=== PATIENT | female | born 1960 | race Caucasian/White ===

== ENCOUNTER → 2019-12-10 14:00 | Outpatient (BNVA) | payer MEDICARE, MEDICAID, SELFPAY | PROVIDERS: Family Provider Family Medicine; PCP Family Medicine; Visit Provider Nurse Practitioner Psychiatric/Mental Health | DX: F10.21 Alcohol dependence, in remission (principal); F31.62 Bipolar disorder, current episode mixed, moderate; F43.12 Post-traumatic stress disorder, chronic; F60.3 Borderline personality disorder; Z63.4 Disappearance and death of family member | CPT/HCPCS: 99213 ==

== ENCOUNTER → 2020-02-25 07:41 | Outpatient (BNVA) | payer MEDICARE, MEDICAID, SELFPAY | PROVIDERS: Family Provider Family Medicine; PCP Family Medicine; Visit Provider Nurse Practitioner Psychiatric/Mental Health | DX: F31.62 Bipolar disorder, current episode mixed, moderate (principal); F60.3 Borderline personality disorder; F43.12 Post-traumatic stress disorder, chronic; Z63.4 Disappearance and death of family member; F10.21 Alcohol dependence, in remission; F41.1 Generalized anxiety disorder | CPT/HCPCS: 99213 ==

== ENCOUNTER → 2020-05-19 07:41 | Outpatient (BNVA) | payer MEDICARE, MEDICAID, SELFPAY | PROVIDERS: Family Provider Family Medicine; PCP Family Medicine; Visit Provider Nurse Practitioner Psychiatric/Mental Health | DX: F31.62 Bipolar disorder, current episode mixed, moderate (principal); F60.3 Borderline personality disorder; F43.12 Post-traumatic stress disorder, chronic; Z63.4 Disappearance and death of family member; F10.21 Alcohol dependence, in remission | CPT/HCPCS: 99213 ==

== ENCOUNTER → 2020-06-18 07:34 | Outpatient (BNVA) | payer MEDICARE, MEDICAID, SELFPAY | PROVIDERS: Family Provider Family Medicine; PCP Family Medicine; Visit Provider Nurse Practitioner Psychiatric/Mental Health | DX: F31.62 Bipolar disorder, current episode mixed, moderate (principal); F60.3 Borderline personality disorder; F43.12 Post-traumatic stress disorder, chronic; Z63.4 Disappearance and death of family member; F10.21 Alcohol dependence, in remission; F41.1 Generalized anxiety disorder | CPT/HCPCS: 99214 ==

== ENCOUNTER → 2020-06-28 11:36 | Outpatient (BNVA) | payer MEDICARE, MEDICAID, SELFPAY | PROVIDERS: Family Provider Family Medicine; PCP Family Medicine; Visit Provider Nurse Practitioner Psychiatric/Mental Health | DX: Z13.6 Encounter for screening for cardiovascular disorders (principal); E03.9 Hypothyroidism, unspecified; Z79.899 Other long term (current) drug therapy | CPT/HCPCS: 80061; 80164; 83036 ==

== ENCOUNTER → 2020-07-01 09:10 | Outpatient (BNVA) | payer MEDICARE, MEDICAID, SELFPAY | PROVIDERS: Family Provider Family Medicine; PCP Family Medicine; Visit Provider Family Medicine | DX: Z13.6 Encounter for screening for cardiovascular disorders (principal); E03.9 Hypothyroidism, unspecified | CPT/HCPCS: 80053; 84443; 85025 ==

== ENCOUNTER → 2020-09-03 07:45 | Outpatient (BNVA) | payer MEDICARE, MEDICAID, SELFPAY | PROVIDERS: Family Provider Family Medicine; PCP Family Medicine; Visit Provider Nurse Practitioner Psychiatric/Mental Health | DX: F31.62 Bipolar disorder, current episode mixed, moderate (principal); F60.3 Borderline personality disorder; F43.12 Post-traumatic stress disorder, chronic; Z63.4 Disappearance and death of family member; F10.21 Alcohol dependence, in remission | CPT/HCPCS: 99214 ==

== ENCOUNTER → 2020-09-29 11:49 | Outpatient (BNVA) | payer MEDICARE, MEDICAID, SELFPAY | PROVIDERS: Family Provider Family Medicine; Visit Provider Nurse Practitioner Family | DX: Z11.59 Encounter for screening for other viral diseases (principal); Z20.828 Contact with and (suspected) exposure to other viral communicable diseases; J06.9 Acute upper respiratory infection, unspecified | CPT/HCPCS: 87635 ==

== ENCOUNTER → 2020-10-04 07:32 | Outpatient (BNVA) | payer MEDICARE, MEDICAID, SELFPAY | PROVIDERS: Family Provider Family Medicine; Visit Provider Nurse Practitioner Psychiatric/Mental Health | DX: F31.62 Bipolar disorder, current episode mixed, moderate (principal); F43.12 Post-traumatic stress disorder, chronic; F60.3 Borderline personality disorder; Z63.4 Disappearance and death of family member; F10.21 Alcohol dependence, in remission | CPT/HCPCS: 99214 ==

== ENCOUNTER → 2020-12-08 07:40 | Outpatient (BNVA) | payer MEDICARE, SELFPAY | PROVIDERS: Family Provider Family Medicine; Visit Provider Nurse Practitioner Psychiatric/Mental Health | DX: F31.62 Bipolar disorder, current episode mixed, moderate (principal); F60.3 Borderline personality disorder; F43.12 Post-traumatic stress disorder, chronic; Z63.4 Disappearance and death of family member; F10.21 Alcohol dependence, in remission | CPT/HCPCS: 99214 ==

== ENCOUNTER 2021-01-27 09:53 | Outpatient (CLI) | payer OTHER, MEDICAID, SELFPAY ==
--- NOTE | 2021-01-27 09:57 | MM_ITS ---
WS: [id number] SCREENING DIGITAL MAMMOGRAM WITH CAD HISTORY: SCREENING COMPARISON: 07/05/2016 and 06/30/2015 Bilateral CC and MLO views submitted. Computer aided detection analyzed. Breast composition: There are scattered areas of fibroglandular density. Cluster of increasing calcif ications in the central RIGHT breast near 12:00. No distortion or soft tissue. MM/[place] [id number] IMPRESSION: BI-RADS: 0-Incomplete: Need additional imaging evaluation FOLLOW UP: Need Additional Imaging RIGHT BREAST: Magnification views of suspicious calcification CC and MLO. True ML.
== END 2021-01-27 09:54 | disposition home or self-care (01) ==
LOC: RADSHAW 09:56
PROVIDERS: PCP Family Medicine; Visit Provider Family Medicine
DX: Z12.31 Encounter for screening mammogram for malignant neoplasm of breast (principal); R92.1 Mammographic calcification found on diagnostic imaging of breast
CPT/HCPCS: 77067

== ENCOUNTER 2021-02-04 13:53 | Outpatient (CLI) | payer OTHER, MEDICAID, SELFPAY ==
--- NOTE | 2021-02-04 14:00 | MM_ITS ---
WS: [id number] RIGHT DIGITAL MAMMOGRAPHY WITH CAD CLINICAL INFORMATION: MAGNIFICATION VIEWS OF SUSPICIOUS CALCIFICATION CC MLO COMPARISON: January 27, 2021, June 2016, June 2015. TECHNIQUE: 3 views of the right breast were obtained. FINDINGS: Scattered fibroglandular densities of the right breast. A few faint punctate heterogeneous calcificat ions in the central right breast. A few of these in a ductal distributiono. These are indeterminate a nd recommend stereotactic biopsy for further evaluation. MM/[place] [id number] IMPRESSION: BI-RADS: 4-Suspicious Finding-Biopsy Should Be Considered FOLLOW UP: Stereotactic Biopsy Recommended
== END 2021-02-04 13:54 | disposition home or self-care (01) ==
PROVIDERS: PCP Family Medicine; Visit Provider Family Medicine
DX: R92.8 Other abnormal and inconclusive findings on diagnostic imaging of breast (principal); R92.1 Mammographic calcification found on diagnostic imaging of breast
CPT/HCPCS: 77065

== ENCOUNTER 2021-02-15 12:05 | Outpatient (CLI) | payer OTHER, MEDICAID, SELFPAY ==
--- NOTE | 2021-02-15 12:09 | MM_ITS ---
WS: [id number] STEREOTACTIC RIGHT BREAST BIOPSY WITH VACUUM ASSISTANCE HISTORY: abnormal mammogram COMPARISON: 02/04/2021 Procedure, risks and complications were explained to the patient. Medications and prior radiographs a re reviewed. RIGHT breast calcifications are located. Calcifications are targeted in the craniocaudal projection. The skin is cleansed with ChloraPrep and anesthetized with 1% buffered lidocaine. Deeper soft tissues anesthetized with a combination of lidocaine and epinephrine. Small dermatome is made. Needle advanc ed into the RIGHT breast. Stereotactic imaging reveals appropriate positioning adjacent calcification s. Multiple vacuum-assisted core biopsies are obtained. No complications were encountered. Post biopsy specimen radiograph reveals numerous calcifications. Biopsy clip is placed in the cavity. Post imaging reveals good placement of the clip. No migration. Pressures held for approximately 15 minutes. No bleeding. Dressing applied. Patient discharged with n o complications. There is no bleeding. With any questions or complications patient is to return. MM/[place] [id number] IMPRESSION: 1. Uncomplicated RIGHT breast stereotactic biopsy. 2. Specimen contains numerous calcifications. Pathology: Benign breast tissue with fibrocystic changes and microcalcification s. No malignancy. RECOMMENDATION: Diagnostic RIGHT mammogram 6 months.
--- NOTE | 2021-02-15 12:09 | MM_ITS ---
WS: [id number] STEREOTACTIC RIGHT BREAST BIOPSY WITH VACUUM ASSISTANCE HISTORY: abnormal mammogram COMPARISON: 02/04/2021 Procedure, risks and complications were explained to the patient. Medications and prior radiographs a re reviewed. RIGHT breast calcifications are located. Calcifications are targeted in the craniocaudal projection. The skin is cleansed with ChloraPrep and anesthetized with 1% buffered lidocaine. Deeper soft tissues anesthetized with a combination of lidocaine and epinephrine. Small dermatome is made. Needle advanc ed into the RIGHT breast. Stereotactic imaging reveals appropriate positioning adjacent calcification s. Multiple vacuum-assisted core biopsies are obtained. No complications were encountered. Post biopsy specimen radiograph reveals numerous calcifications. Biopsy clip is placed in the cavity. Post imaging reveals good placement of the clip. No migration. Pressures held for approximately 15 minutes. No bleeding. Dressing applied. Patient discharged with n o complications. There is no bleeding. With any questions or complications patient is to return. MM/MM surgical specimen RT IMPRESSION: 1. Uncomplicated RIGHT breast stereotactic biopsy. 2. Specimen contains numerous calcifications. Pathology: Benign breast tissue with fibrocystic changes and microcalcification s. No malignancy. RECOMMENDATION: Diagnostic RIGHT mammogram 6 months.
--- NOTE | 2021-02-15 13:00 | MM_ITS ---
WS: [id number] STEREOTACTIC RIGHT BREAST BIOPSY WITH VACUUM ASSISTANCE HISTORY: abnormal mammogram COMPARISON: 02/04/2021 Procedure, risks and complications were explained to the patient. Medications and prior radiographs a re reviewed. RIGHT breast calcifications are located. Calcifications are targeted in the craniocaudal projection. The skin is cleansed with ChloraPrep and anesthetized with 1% buffered lidocaine. Deeper soft tissues anesthetized with a combination of lidocaine and epinephrine. Small dermatome is made. Needle advanc ed into the RIGHT breast. Stereotactic imaging reveals appropriate positioning adjacent calcification s. Multiple vacuum-assisted core biopsies are obtained. No complications were encountered. Post biopsy specimen radiograph reveals numerous calcifications. Biopsy clip is placed in the cavity. Post imaging reveals good placement of the clip. No migration. Pressures held for approximately 15 minutes. No bleeding. Dressing applied. Patient discharged with n o complications. There is no bleeding. With any questions or complications patient is to return. MM/[place] vac [place] [id number] IMPRESSION: 1. Uncomplicated RIGHT breast stereotactic biopsy. 2. Specimen contains numerous calcifications. Pathology: Benign breast tissue with fibrocystic changes and microcalcification s. No malignancy. RECOMMENDATION: Diagnostic RIGHT mammogram 6 months.
== END 2021-02-15 12:06 | disposition home or self-care (01) ==
LOC: RADSHAW 12:07
PROVIDERS: PCP Family Medicine; Visit Provider Family Medicine
DX: R92.1 Mammographic calcification found on diagnostic imaging of breast (principal)
CPT/HCPCS: 19081; 77065; 88305; J7050

== ENCOUNTER → 2021-03-02 08:22 | Outpatient (BNVA) | payer MEDICARE, MEDICAID, SELFPAY | PROVIDERS: PCP Family Medicine; Visit Provider Nurse Practitioner Psychiatric/Mental Health | DX: F31.62 Bipolar disorder, current episode mixed, moderate (principal); F60.3 Borderline personality disorder; F43.12 Post-traumatic stress disorder, chronic; Z63.4 Disappearance and death of family member; F10.21 Alcohol dependence, in remission | CPT/HCPCS: 99214 ==

== ENCOUNTER → 2021-03-11 09:09 | Outpatient (BNVA) | payer MEDICARE, MEDICAID, SELFPAY | PROVIDERS: PCP Family Medicine; Visit Provider Family Medicine | DX: E78.5 Hyperlipidemia, unspecified (principal); E03.9 Hypothyroidism, unspecified; G25.81 Restless legs syndrome | CPT/HCPCS: 80053; 80061; 84443 ==

== ENCOUNTER → 2021-04-08 08:13 | Outpatient (BNVA) | payer MEDICARE, MEDICAID, SELFPAY | PROVIDERS: PCP Family Medicine; Visit Provider Nurse Practitioner Psychiatric/Mental Health | DX: F31.62 Bipolar disorder, current episode mixed, moderate (principal); F60.3 Borderline personality disorder; F43.12 Post-traumatic stress disorder, chronic; Z63.4 Disappearance and death of family member; F10.21 Alcohol dependence, in remission | CPT/HCPCS: 99214 ==

== ENCOUNTER → 2021-04-29 07:28 | Outpatient (BNVA) | payer MEDICARE, MEDICAID, SELFPAY | PROVIDERS: PCP Family Medicine; Visit Provider Nurse Practitioner Psychiatric/Mental Health | DX: F31.62 Bipolar disorder, current episode mixed, moderate (principal); F60.3 Borderline personality disorder; F43.12 Post-traumatic stress disorder, chronic; Z63.4 Disappearance and death of family member | CPT/HCPCS: 99214 ==

== ENCOUNTER 2021-05-19 11:31 | Outpatient (CLI) | payer MEDICARE, MEDICAID, SELFPAY ==
--- NOTE | 2021-05-19 11:30 | XR_ITS ---
WS: [id number] LEFT KNEE: 3 VIEW(S) TECHNIQUE: AP, oblique(s) and lateral. HISTORY: chronic knee pain COMPARISON: None available. No fracture or dislocation. Mild narrowing of all 3 compartments. Very small hypertrophic osteophytes along the joint lines. No joint effusion. No soft tissue abnormality. XR/XR knee LT 3V* [id number] IMPRESSION: Mild tricompartment osteoarthritis.
== END 2021-05-19 11:32 | disposition home or self-care (01) ==
PROVIDERS: PCP Family Medicine; Visit Provider Family Medicine
DX: M25.562 Pain in left knee (principal); M17.12 Unilateral primary osteoarthritis, left knee
CPT/HCPCS: 73562

== ENCOUNTER → 2021-08-09 12:21 | Outpatient (BNVA) | payer MEDICARE, MEDICAID, SELFPAY | PROVIDERS: PCP Family Medicine; Visit Provider Nurse Practitioner Family | DX: Z20.822 Contact with and (suspected) exposure to COVID-19 (principal); J06.9 Acute upper respiratory infection, unspecified | CPT/HCPCS: 87635 ==

== ENCOUNTER → 2021-08-23 09:50 | Outpatient (BNVA) | payer MEDICARE, MEDICAID, SELFPAY | PROVIDERS: PCP Family Medicine; Visit Provider Nurse Practitioner Psychiatric/Mental Health | DX: Z79.899 Other long term (current) drug therapy (principal) | CPT/HCPCS: 80053; 80164; 83036 ==

== ENCOUNTER → 2021-08-30 07:02 | Outpatient (BNVA) | payer MEDICARE, MEDICAID, SELFPAY | PROVIDERS: PCP Family Medicine; Visit Provider Nurse Practitioner Psychiatric/Mental Health | DX: F31.62 Bipolar disorder, current episode mixed, moderate (principal); F43.12 Post-traumatic stress disorder, chronic; F60.3 Borderline personality disorder; Z63.4 Disappearance and death of family member; Z79.899 Other long term (current) drug therapy; F10.21 Alcohol dependence, in remission | CPT/HCPCS: 99214 ==

== ENCOUNTER → 2021-08-31 07:29 | Outpatient (BNVA) | payer MEDICARE, MEDICAID, SELFPAY | PROVIDERS: PCP Family Medicine; Visit Provider Social Worker | DX: F31.62 Bipolar disorder, current episode mixed, moderate (principal); F60.3 Borderline personality disorder; F43.12 Post-traumatic stress disorder, chronic | CPT/HCPCS: 90834 ==

== ENCOUNTER → 2021-09-05 10:23 | Outpatient (BNVA) | payer MEDICARE, MEDICAID, SELFPAY | PROVIDERS: PCP Family Medicine; Visit Provider Family Medicine | DX: R53.83 Other fatigue (principal); E03.9 Hypothyroidism, unspecified | CPT/HCPCS: 82607; 84439; 84443; 85025 ==

== ENCOUNTER 2021-09-20 09:05 | Outpatient (CLI) | payer MEDICARE, MEDICAID, SELFPAY ==
--- NOTE | 2021-09-20 09:00 | MM_ITS ---
WS: [id number] DIAGNOSTIC RIGHT DIGITAL MAMMOGRAM WITH CAD HISTORY: Six-month follow-up stereotactic biopsy RIGHT breast. COMPARISON: 02/15/2021, 02/04/2021 and 01/27/2021 Technique: CC, MLO and ML views. Breast composition: There are scattered areas of fibroglandular density. Biopsy clip is noted centra l and posterior to the nipple. No residual calcifications. No increasing since calcifications or nodu les. MM/[place] [id number] IMPRESSION: BI-RADS: 2-Benign FOLLOW UP: 6 Month Follow-up Patient should return to annual screening mammography.
== END 2021-09-20 09:06 | disposition home or self-care (01) ==
LOC: RADSHAW 09:07
PROVIDERS: PCP Family Medicine; Visit Provider Family Medicine
DX: R92.8 Other abnormal and inconclusive findings on diagnostic imaging of breast (principal)
CPT/HCPCS: 77065

== ENCOUNTER → 2021-10-03 08:10 | Outpatient (BNVA) | payer MEDICARE, MEDICAID, SELFPAY | PROVIDERS: PCP Family Medicine; Visit Provider Nurse Practitioner Psychiatric/Mental Health | DX: F31.62 Bipolar disorder, current episode mixed, moderate (principal); F60.3 Borderline personality disorder; F43.12 Post-traumatic stress disorder, chronic; Z63.4 Disappearance and death of family member; Z79.899 Other long term (current) drug therapy; F10.21 Alcohol dependence, in remission | CPT/HCPCS: 99214 ==

== ENCOUNTER → 2021-10-31 07:32 | Outpatient (BNVA) | payer MEDICARE, MEDICAID, SELFPAY | PROVIDERS: PCP Family Medicine; Visit Provider Nurse Practitioner Psychiatric/Mental Health | DX: F31.62 Bipolar disorder, current episode mixed, moderate (principal); F60.3 Borderline personality disorder; F43.12 Post-traumatic stress disorder, chronic; Z79.899 Other long term (current) drug therapy; Z63.4 Disappearance and death of family member; F10.21 Alcohol dependence, in remission | CPT/HCPCS: 99214 ==

== ENCOUNTER → 2021-11-01 08:05 | Outpatient (BNVA) | payer MEDICARE, MEDICAID, SELFPAY | PROVIDERS: PCP Family Medicine; Visit Provider Social Worker | DX: F31.62 Bipolar disorder, current episode mixed, moderate (principal); F60.3 Borderline personality disorder; F43.12 Post-traumatic stress disorder, chronic | CPT/HCPCS: 90834 ==

== ENCOUNTER → 2021-11-21 15:40 | Outpatient (BNVA) | payer MEDICARE, MEDICAID, SELFPAY | PROVIDERS: PCP Family Medicine; Visit Provider Family Medicine | DX: Z13.1 Encounter for screening for diabetes mellitus (principal) | CPT/HCPCS: 80053; 83036 ==

== ENCOUNTER → 2021-12-06 12:17 | Outpatient (BNVA) | payer MEDICARE, MEDICAID, SELFPAY | PROVIDERS: PCP Family Medicine; Visit Provider Nurse Practitioner Family | DX: Z20.822 Contact with and (suspected) exposure to COVID-19 (principal) | CPT/HCPCS: 87635 ==

== ENCOUNTER 2021-12-09 12:05 | Outpatient (CLI) | payer MEDICARE, MEDICAID, SELFPAY ==
[2021-12-09 12:15] VITALS: BP 130/77; PULSE 90; RESP 16; TEMP 36.2; O2SAT 95; BMI 32.5
[2021-12-09 12:40] VITALS: BP 112/73; PULSE 75; RESP 16; TEMP 36.7; O2SAT 97
[2021-12-09 14:12] VITALS: BP 116/71; PULSE 73; RESP 16; TEMP 36.5; O2SAT 92
== END 2021-12-09 12:06 | disposition home or self-care (01) ==
LOC: OPS 12:07
PROVIDERS: PCP Family Medicine; Visit Provider Nurse Practitioner Family
DX: U07.1 COVID-19 (principal)
CPT/HCPCS: 96365

== ENCOUNTER → 2022-01-06 10:52 | Outpatient (BNVA) | payer MEDICARE, MEDICAID, SELFPAY | PROVIDERS: PCP Family Medicine; Visit Provider Psychiatry & Neurology Psychiatry | DX: F60.3 Borderline personality disorder (principal); F43.12 Post-traumatic stress disorder, chronic; F10.21 Alcohol dependence, in remission | CPT/HCPCS: 99214 ==

== ENCOUNTER → 2022-01-16 07:48 | Outpatient (BNVA) | payer MEDICARE, MEDICAID, SELFPAY | PROVIDERS: PCP Family Medicine; Visit Provider Social Worker | DX: F31.62 Bipolar disorder, current episode mixed, moderate (principal); F60.3 Borderline personality disorder; F43.12 Post-traumatic stress disorder, chronic | CPT/HCPCS: 90834 ==

== ENCOUNTER 2022-01-25 16:05 | Outpatient (CLI) | payer MEDICARE, MEDICAID, SELFPAY ==
--- NOTE | 2022-01-25 16:14 | XR_ITS ---
WS: [id number] Left clavicle, 2 views, 01/25/2022 Clinical Data: pain with lifting, rom Comparison: None. Findings: No fractures or dislocations are seen. The AC joint is normal. The soft tissues are unremarkable. The sternoclavicular joint is normal. XR/[place] [id number] Impression: Negative left clavicle.
== END 2022-01-25 16:06 | disposition home or self-care (01) ==
LOC: RAD 16:07
PROVIDERS: PCP Family Medicine; Visit Provider Emergency Medicine
DX: M89.8X1 Other specified disorders of bone, shoulder (principal)
CPT/HCPCS: 73000

== ENCOUNTER → 2022-01-27 14:08 | Outpatient (BNVA) | payer MEDICARE, MEDICAID, SELFPAY | PROVIDERS: PCP Family Medicine; Visit Provider Family Medicine | DX: D50.9 Iron deficiency anemia, unspecified (principal) | CPT/HCPCS: 82728; 83550; 85025 ==

== ENCOUNTER → 2022-01-31 11:27 | Outpatient (BNVA) | payer MEDICARE, MEDICAID, SELFPAY | PROVIDERS: PCP Family Medicine; Visit Provider Psychiatry & Neurology Psychiatry | DX: F60.3 Borderline personality disorder (principal); F43.12 Post-traumatic stress disorder, chronic; F10.21 Alcohol dependence, in remission; F41.1 Generalized anxiety disorder | CPT/HCPCS: 99214 ==

== ENCOUNTER → 2022-02-23 16:32 | Outpatient (BNVA) | payer MEDICARE, SELFPAY | PROVIDERS: PCP Family Medicine; Visit Provider Family Medicine | DX: R73.09 Other abnormal glucose (principal) | CPT/HCPCS: 83036 ==

== ENCOUNTER → 2022-02-28 07:17 | Outpatient (BNVA) | payer MEDICARE, SELFPAY | PROVIDERS: PCP Family Medicine; Visit Provider Psychiatry & Neurology Psychiatry | DX: F41.1 Generalized anxiety disorder (principal); F43.12 Post-traumatic stress disorder, chronic; F60.3 Borderline personality disorder; F10.21 Alcohol dependence, in remission | CPT/HCPCS: 99213 ==

== ENCOUNTER → 2022-04-05 07:06 | Outpatient (BNVA) | payer MEDICARE, SELFPAY | PROVIDERS: PCP Family Medicine; Visit Provider Psychiatry & Neurology Psychiatry | DX: F41.1 Generalized anxiety disorder (principal); F60.3 Borderline personality disorder; F43.12 Post-traumatic stress disorder, chronic; F31.62 Bipolar disorder, current episode mixed, moderate; F10.21 Alcohol dependence, in remission | CPT/HCPCS: 99213 ==

== ENCOUNTER → 2022-08-17 10:31 | Outpatient (BNVA) | payer MEDICARE, MEDICAID, SELFPAY | PROVIDERS: PCP Family Medicine; Visit Provider Family Medicine | DX: Z13.1 Encounter for screening for diabetes mellitus (principal); E78.5 Hyperlipidemia, unspecified; E03.9 Hypothyroidism, unspecified; Z87.891 Personal history of nicotine dependence; E78.49 Other hyperlipidemia | CPT/HCPCS: 80053; 80061; 83036; 84443; 85025 ==

== ENCOUNTER 2022-10-16 10:47 | Outpatient (CLI) | payer MEDICARE, MEDICAID, SELFPAY ==
--- NOTE | 2022-10-16 11:00 | MM_ITS ---
WS: [id number] BILATERAL SCREENING DIGITAL TOMOSYNTHESIS MAMMOGRAM WITH CAD HISTORY: screening mammogram COMPARISON: 09/20/2021, 01/27/2021 Bilateral CC and MLO views with tomosynthesis and synthetic mammography submitted. Computer aided det ection analyzed. Breast composition: There are scattered areas of fibroglandular density. No suspicious masses, microc alcifications or architectural distortion. Biopsy clip 3:00 LEFT breast. Previously described calcifi cations were removed during the biopsy. MM/[place] [id number] IMPRESSION: BI-RADS: 2-Benign FOLLOW UP: 1 Year Follow-up
--- NOTE | 2022-10-16 11:15 | CT_ITS ---
WS: [id number] LDCT LUNG CANCER SCREENING TECHNIQUE: Noncontrast CT of the chest with coronal and sagittal reformatted images. CLINICAL INFORMATION: screening COMPARISON: None. DLP: 77.39 mGy.cm DIvol: Mean CTDIvol: 1.60 (mGy) All CT scans at [facility] use at least one of these dose optimization techniques: automat ed exposure control; mA and/or kV adjustment per patient size (includes targeted exams where dose is matched to clinical indication); or iterative reconstruction. FINDINGS: No acute pulmonary infiltrates. No focal pneumonia or pleural fluid. No suspicious pulmonar y parenchymal opacities. A few small 2-3 mm noncalcified pulmonary nodules RIGHT upper lobe. Tiny non calcified subpleural nodule LEFT lower lobe. A few calcified granulomas. Normal caliber thoracic aorta. No mediastinal or hilar lymphadenopathy. No axillary lymphadenopathy. Normal GE junction. Adrenal glands are normal. CT/CT lung screening [id number] IMPRESSION: LUNG-RADS: 2-Benign Appearance or Behavior FOLLOW UP: 12 Month: Continue annual screening with LDCT
== END 2022-10-16 10:48 | disposition home or self-care (01) ==
LOC: RAD 10:48
PROVIDERS: PCP Family Medicine; Visit Provider Family Medicine
DX: Z12.2 Encounter for screening for malignant neoplasm of respiratory organs (principal); Z12.31 Encounter for screening mammogram for malignant neoplasm of breast; Z87.891 Personal history of nicotine dependence
CPT/HCPCS: 71271; 77063; 77067

== ENCOUNTER 2023-01-29 18:19 | Emergency (ER) | payer MEDICARE, MEDICAID, SELFPAY ==
[2023-01-29] VITALS (7 sets, daily range): BP systolic 155–177; BP diastolic 80–99; PULSE 69–86; RESP 16–18; TEMP 36.6; O2SAT 96–100
--- NOTE | 2023-01-29 19:22 | W.ED.EXTPRO ---
HPI - Extremity Problem General: Chief complaint: Extremity Injury, Upper Stated complaint: Left Arm Injury Time Seen by Provider: 01/29/23 19:10 History of Present Illness: Ms. Vasquez is a 62-year-old lady with complex past medical history including psychiatric disorder presenting to the emergency department for fall with arm injury. She reports few falls over the past few weeks of unclear etiology. Last night she was walking in the dark after taking her Seroquel and also Benadryl for hives and a muscle relaxer for chronic back pain. She endorses falling primarily landing on the left side. She endorses left upper extremity pain which is moderate to severe in intensity. Worse with palpation and attempts at movement. She endorses increased stress and difficulty with memory. No other specific changes in health, exacerbating, or alleviating factors identified. Onset (ago): day(s) Location: left and upper extremity Quality: aching and sharp Radiation: none Relieving factors: nothing Exacerbating factors: range of motion and palpation Associated symptoms: Reports other Review of Systems General: Reports: 10 or more systems reviewed and unremarkable except in HPI and below PFSH ED PFSH: Medical History Alcohol use disorder, moderate, in sustained remission Bereavement, uncomplicated Bipolar 1 disorder, mixed, moderate Borderline personality disorder Chronic neck pain Chronic post-traumatic stress disorder Dyslipidemia GERD (gastroesophageal reflux disease) Hypothyroid Psychiatric care RLS (restless legs syndrome) Surgical History H/O section Social History Smoking and tobacco status: former smoker Quit status (tobacco): has quit using tobacco Year quit tobacco: 2020 Second hand smoke exposure: No Smoking risk assessment/counseling performed?: No Alcohol intake: former Desire information about alcohol rehabilitation?: No Counseling given: No Desire information about substance/drug rehabilitation?: No Counseling given: No Physical Exam Const: COMMON NORMALS: alert GENERAL APPEARANCE: cooperative and well developed HENMT: COMMON NORMALS: normocephalic, atraumatic and oropharynx normal HEAD & SCALP: normocephalic and atraumatic Eye: COMMON NORMALS: conjunctivae normal CONJUNCTIVA: Yes conjunctivae normal SCLERA: sclerae normal Neck/C-Spine: COMMON NORMALS: supple GENERAL: Yes trachea midline Resp: COMMON NORMALS: clear to auscultation bilaterally EFFORT & INSPECTION: Yes able to speak in complete sentences AUSCULTATION: clear to auscultation bilaterally Cardio: COMMON NORMALS: regular rate and regular rhythm RATE: regular rate RHYTHM: regular rhythm GI: COMMON NORMALS: Soft to palpation PALPATION: Yes Soft to palpation and No Tenderness to palpation present (GI) PERCUSSION: normal to percussion Extremity: NARRATIVE EXTREMITY EXAM: Tenderness palpation essentially from the elbow on the left down. Patient reports subjective decrease sensation, well perfused with normal pulses. GENERAL: Yes normal exam except as noted and No edema Neuro: COMMON NORMALS: moves all extremities SENSORIUM/ORIENTATION: Yes alert and No Orientation impaired Psych: COMMON NORMALS: mental status grossly normal and Normal thought process present THOUGHT PROCESS: Normal thought process present Course Vital Signs: Vital signs: Vital Signs Temperature 97.8 F 01/29/23 23:04 Pulse Rate 80 01/29/23 23:04 Respiratory Rate 16 01/29/23 23:04 Blood Pressure 172/90 01/29/23 23:04 Pulse Oximetry 100 01/29/23 23:04 Oxygen Delivery Me thod 01/29/23 21:00 MDM - Extremity (Nontraumatic) Medical Decision Making 62-year-old lady presenting with increased falls and left wrist pain secondary to fall with various other concerns. Exam as above. CMS intact with significant pain limiting exam. Labs with no significant abnormality to explain increased falls. CT head is negative for acute intracranial pathology. X-ray imaging notable for complex fracture involving the distal radius and ulnar styloid fracture. Patient placed in sugar-tong splint. Pain improved with analgesia. Additional doses for overnight as the pharmacies are closed. Case management referral placed for follow-up with orthopedics. Most likely etiology of patient's symptoms is complicated left wrist fracture. The results of ED evaluation were discussed with the patient including prescriptions and/or symptomatic cares (if applicable) including appropriate and responsible use, followup plan, and return precautions. I spent extra time discussing concern over polypharmacy with the patient given necessity for adequate analgesia prescription. The patient verbalized understanding and felt safe for discharge. Medical Records I reviewed the patient's medical records. Lab Data I reviewed the patient's lab results. 01/29/23 19:55 01/29/23 19:55 Radiology Impressions Elbow X-Ray 01/29/23 19:28 IMPRESSION: No acute findings. Forearm X-Ray 01/29/23 19:28 IMPRESSION: Left distal radius and ulna fractures. Hand X-Ray 01/29/23 19:28 IMPRESSION: Acute left wrist fractures as described. Wrist X-Ray 01/29/23 19:28 IMPRESSION: Acute left wrist fractures as described. Head CT 01/29/23 20:06 IMPRESSION: No acute intracranial abnormality. Laboratory Results WBC 9.7 10^3/uL (4.0-10.0) 01/29/23 19:55 RBC 4.62 10^6/uL (4.1-5.3) 01/29/23 19:55 Hgb 12.9 g/dL (11.5-15.3) 01/29/23 19:55 Hct 40.3 % (37.0-47.0) 01/29/23 19:55 MCV 87.2 fl (81-99) 01/29/23 19:55 MCH 27.9 pg (28.0-34.0) L 01/29/23 19:55 MCHC 32.0 g/dL (30.0-36.0) 01/29/23 19:55 RDW 13.5 % (12.1-15.1) 01/29/23 19:55 Plt Count 364 10^3/cmm (130-400) 01/29/23 19:55 MPV 8.9 fL (7.4-10.4) 01/29/23 19:55 Neut % (Auto) 57.8 % 01/29/23 19:55 Lymph % (Auto) 31.0 % 01/29/23 19:55 Cowley % (Auto) 10.2 % 01/29/23 19:55 Eos % (Auto) 0.3 % 01/29/23 19:55 Baso % (Auto) 0.5 % 01/29/23 19:55 Neut # (Auto) 5.58 10^3/uL (1.8-7.7) 01/29/23 19:55 Lymph # (Auto) 3.0 10^3/uL (0.8-4.8) 01/29/23 19:55 Cowley # (Auto) 1.0 10^3/uL (0.2-0.9) H 01/29/23 19:55 Eos # (Auto) 0.0 10^3/uL (0.0-0.8) 01/29/23 19:55 Baso # (Auto) 0.1 10^3/uL (0.0-0.1) 01/29/23 19:55 Nucleated RBC % (auto) 0 % 01/29/23 19:55 Nucleated RBCs # 0.0 /100WBC 01/29/23 19:55 Sodium 135 mmol/L (136-145) L 01/29/23 19:55 Potassium 3.8 mmol/L (3.5-5.1) 01/29/23 19:55 Chloride 99 mmol/L (98-107) 01/29/23 19:55 Carbon Dioxide 25 mmol/L (22-29) 01/29/23 19:55 Anion Gap 14.8 (5-19) 01/29/23 19:55 BUN 9 mg/dL (8-23) 01/29/23 19:55 Creatinine 0.5 mg/dL (0.5-0.9) 01/29/23 19:55 GFR Calculation 125.9 mL/min (90-130) 01/29/23 19:55 Glucose 87 mg/dL (65-115) 01/29/23 19:55 Calculated Osmolality 278 mOsm/kg (285-295) L 01/29/23 19:55 Calcium 9.4 mg/dL (8.5-10.5) 01/29/23 19:55 Total Bilirubin 0.2 mg/dL (0.15-1.2) 01/29/23 19:55 AST 24 U/L (0-32) 01/29/23 19:55 ALT 22 U/L (0-33) 01/29/23 19:55 Alkaline Phosphatase 93 U/L (35-105) 01/29/23 19:55 Total Protein 7.5 g/dL (6.6-8.7) 01/29/23 19:55 Albumin 4.4 g/dL (3.5-5.2) 01/29/23 19:55 Globulin 3.1 g/dL (1.3-4.6) 01/29/23 19:55 TSH 2.20 uIU/mL (0.27-4.20) 01/29/23 19:55 Discharge Plan Discharge Patient Disposition: Home Clinical Impression: At high risk for falls, At risk for polypharmacy, Fracture of wrist, closed Condition: Stable Prescriptions: New ondansetron 4 mg tablet,disintegrating 4 mg PO Q8H PRN (Reason: nausea and vomiting) Qty: 15 0RF oxycodone 5 mg tablet 5 mg PO Q4H PRN (Reason: pain) Qty: 20 0RF No Action calcium carbonate-vitamin D3 [Calcium 600 with Vitamin D3] 600 mg(1,500mg) -500 unit capsule PO BID Rx Instructions: Two capsules Daily ferrous gluconate [Ferate] 240 mg (27 mg iron) tablet See Rx Instructions PO DAILY Rx Instructions: 325 mg PO daily; multivitamin Tablet 1 tab PO DAILY hydrocodone-acetaminophen 10-325 mg tablet 1 tab PO TID PRN gabapentin 300 mg capsule 400 mg PO DAILY divalproex [Depakote ER] 500 mg tablet extended release 24 hr 1,000 mg PO .QHS Qty: 180 2RF Rx Instructions: Take two tablets at bedtime quetiapine [Seroquel] 300 mg tablet 300 mg PO .bedtime Qty: 30 2RF Rx Instructions: Take one tablet at bedtime propranolol 20 mg tablet 20 mg PO BID PRN (Reason: anxiety) Qty: 60 2RF celecoxib 200 mg capsule See Rx Instructions .ROUTE .COMPLEX Qty: 90 1RF Dose Instruction: TAKE 1 CAPSULE BY MOUTH EVERY DAY Rx Instructions: TAKE 1 CAPSULE BY MOUTH EVERY DAY baclofen 10 mg tablet See Rx Instructions .ROUTE .COMPLEX Qty: 270 1RF Dose Instruction: TAKE 1 TABLET BY MOUTH THREE TIMES A DAY Rx Instructions: TAKE 1 TABLET BY MOUTH THREE TIMES A DAY atorvastatin 80 mg tablet See Rx Instructions .ROUTE .COMPLEX Qty: 90 0RF Dose Instruction: TAKE 1 TABLET BY MOUTH EVERY DAY Rx Instructions: TAKE 1 TABLET BY MOUTH EVERY DAY levothyroxine 100 mcg tablet See Rx Instructions .ROUTE .COMPLEX Qty: 30 2RF Dose Instruction: TAKE 1 TABLET BY MOUTH EVERY DAY Rx Instructions: TAKE 1 TABLET BY MOUTH EVERY DAY fluticasone propionate 50 mcg/actuation spray,suspension See Rx Instructions .ROUTE .COMPLEX Qty: 48 0RF Dose Instruction: SHAKE LIQUID AND USE 2 SPRAYS IN EACH NOSTRIL DAILY Rx Instructions: SHAKE LIQUID AND USE 2 SPRAYS IN EACH NOSTRIL DAILY pantoprazole 40 mg tablet,delayed release (DR/EC) See Rx Instructions .ROUTE .COMPLEX Qty: 30 2RF Dose Instruction: TAKE 1 TABLET BY MOUTH EVERY DAY Rx Instructions: TAKE 1 TABLET BY MOUTH EVERY DAY fluoxetine 40 mg capsule 80 mg PO DAILY Qty: 60 1RF ropinirole 3 mg tablet See Rx Instructions .ROUTE .COMPLEX Qty: 90 1RF Dose Instruction: TAKE 1 TABLET BY MOUTH EVERYDAY AT BEDTIME Rx Instructions: TAKE 1 TABLET BY MOUTH EVERYDAY AT BEDTIME Discharge Orders: Discharge ED (Routine); Ordered 01/29/23 Ordered By: Boone Hboson Referrals: Alyssa Schwartz, [Primary Care Provider] - Discharge Diet: Usual diet Discharge Activity: Limit activity as instructed Activity Restrictions/Additional Instructions: Thank you for visiting the emergency department. You were seen and evaluated for wrist pain after fall. You have a complex fracture involving the distal radius as well as a ulnar styloid fracture. This was splinted. This requires follow-up, I will message case management for follow-up with orthopedics. You may use iulf-[id number] medications such as acetaminophen and ibuprofen for pain however please do not exceed the daily recommended dosage as listed on the packaging and please keep in mind that many namebrand medications contain the same active ingredients. Please avoid these medications if previously instructed to do so by another physician due to other underlying medical condition. I will prescribe oxycodone. Use this cautiously as it can cause adverse effects including oversedation when combined with other medications. Please follow-up with your primary care provider. Return to the emergency department for uncontrolled pain, any new sensory or temperature changes, changes inability to move your fingers, or anything else that you are concerned about and feel needs emergency department evaluation. Coding Level of Care Code ED [employer] for Ed Holcomb
--- NOTE | 2023-01-29 19:28 | XRR_ITS ---
PROCEDURE INFORMATION: Exam: XR Left Elbow Exam date and time: 01/29/2023 7:41 PM Age: 62 years old Clinical indication: Injury or trauma; Fall; Blunt trauma (contusions or hematomas); Elbow; Left; Additional info: Fall, pain TECHNIQUE: Imaging protocol: Radiologic exam of the left elbow. Views: 1 or 2 views. COMPARISON: CR (UP EXM, ) 01/29/2023 7:38 PM FINDINGS: Bones/joints: Normal. Soft tissues: Normal. XR/XR elbow LT 2V [id number] IMPRESSION: No acute findings.
--- NOTE | 2023-01-29 19:28 | XRR_ITS ---
PROCEDURE INFORMATION: Exam: XR Left Wrist Exam date and time: 01/29/2023 7:41 PM Age: 62 years old Clinical indication: Injury or trauma; Fall; Blunt trauma (contusions or hematomas); Wrist; Left; Additional info: Fall, pain TECHNIQUE: Imaging protocol: Radiologic exam of the left wrist. Views: 3 or more views. COMPARISON: CR (UP EXM, ) 01/29/2023 7:38 PM FINDINGS: Bones/joints: Comminuted multi-directional intra-articular fracture lucencies of the left distal radius. Minimal dorsal angulation of the articular surface. No significant displacement. Transverse ulnar styloid process fracture at the base relatively nondisplaced. Unremarkable carpal bones. Soft tissues: Diffuse soft tissue swelling. XR/XR wrist LT min 3V* [id number] IMPRESSION: Acute left wrist fractures as described.
--- NOTE | 2023-01-29 19:28 | XRR_ITS ---
PROCEDURE INFORMATION: Exam: XR Left Forearm Exam date and time: 01/29/2023 7:41 PM Age: 62 years old Clinical indication: Injury or trauma; Fall; Blunt trauma (contusions or hematomas); Arm, lower; Left; Additional info: Fall, pain TECHNIQUE: Imaging protocol: Radiologic exam of the left forearm. Views: 2 views. COMPARISON: CR (UP EXM, ) 01/29/2023 7:38 PM FINDINGS: Bones/joints: Left distal radius and ulna fractures are redemonstrated better characterized on dedicated wrist imaging. Negative for proximal forearm fracture. Soft tissues: Distal forearm soft tissue swelling. XR/XR forearm LT 2V [id number] IMPRESSION: Left distal radius and ulna fractures.
--- NOTE | 2023-01-29 19:28 | XRR_ITS ---
PROCEDURE INFORMATION: Exam: XR Left Hand Exam date and time: 01/29/2023 7:38 PM Age: 62 years old Clinical indication: Injury or trauma; Fall; Blunt trauma (contusions or hematomas); Hand; Left; Additional info: Fall, pain TECHNIQUE: Imaging protocol: Radiologic exam of the left hand. Views: 3 or more views. COMPARISON: No relevant prior studies available. FINDINGS: Bones/joints: Comminuted multi-directional intra-articular fracture lucencies of the left distal radius. Minimal dorsal angulation of the articular surface. No significant displacement. Transverse ulnar styloid process fracture at the base relatively nondisplaced. Unremarkable carpal bones. Soft tissues: Diffuse soft tissue swelling. XR/XR hand LT min 3V* [id number] IMPRESSION: Acute left wrist fractures as described.
--- NOTE | 2023-01-29 20:02 | PC.NURSE ---
Upon assessment, pt was noted to have intact SMCs. Pt stated decreased sensation but it is bilaterally decreased. Radial pulses equal and strong. Possible deformity noted of L forearm with increased swelling.
[2023-01-29 20:05] LABS: Basophils # 0.1 10^3/uL (0.0-0.1); Basophils % 0.5 %; Eosinophils % 0.3 %; Hematocrit 40.3 % (37.0-47.0); Hemoglobin 12.9 g/dL (11.5-15.3); Mean Corpuscular Hemoglobin 27.9 pg (28.0-34.0); Mean Corpuscular Volume 87.2 fl (81-99); Mean Platelet Volume 8.9 fL (7.4-10.4); Monocytes % 10.2 %; Neutrophils # 5.58 10^3/uL (1.8-7.7); Neutrophils % 57.8 %; Nucleated Red Blood Cells % 0 %; Platelet Count 364 10^3/cmm (130-400); Red Blood Count 4.62 10^6/uL (4.1-5.3); Red Cell Distribution Width 13.5 % (12.1-15.1); White Blood Count 9.7 10^3/uL (4.0-10.0)
[2023-01-29] MEDS: morphine 4 mg/mL SDV 1 mL IVP (20:05)
--- NOTE | 2023-01-29 20:06 | CTR_ITS ---
PROCEDURE INFORMATION: Exam: CT Head Without Contrast Exam date and time: 01/29/2023 9:07 PM Age: 62 years old Clinical indication: Injury or trauma; Blunt trauma (contusions or hematomas); Altered mental status/memory loss; Confusion or disorientation; Patient HX: Recent falls. Patient states having transient episodes of confusion. ; Additional info: Falls, confusion TECHNIQUE: Imaging protocol: Computed tomography of the head without contrast. Radiation optimization: All CT scans at this facility use at least one of these dose optimization techniques: automated exposure control; mA and/or kV adjustment per patient size (includes targeted exams where dose is matched to clinical indication); or iterative reconstruction. REPORTING DATA: Count of CT and Cardiac NM exams in prior 12 months: This patient has received [address] and 0 known cardiac nuclear medicine studies in the 12 months prior to the current study. COMPARISON: CT sinus wo con* [id number] 02/18/2019 8:40 AM RADIATION DOSE METRICS: Total DLP (mGy-cm): 955.28 FINDINGS: Brain: Unremarkable. Mild cerebral cortical volume loss. No hemorrhage. Unremarkable white matter. No mass effect. Cerebral ventricles: No ventriculomegaly. Paranasal sinuses: Visualized sinuses are unremarkable. No fluid levels. Mastoid air cells: Visualized mastoid air cells are well aerated. Bones/joints: Unremarkable. No acute fracture. Soft tissues: Unremarkable. CT/CT head wo con* [id number] IMPRESSION: No acute intracranial abnormality.
[2023-01-29 20:39] LABS: Alanine Aminotransferase 22 U/L (0-33); Albumin Level 4.4 g/dL (3.5-5.2); Alkaline Phosphatase 93 U/L (35-105); Anion Gap 14.8 (5-19); Aspartate Amino Transferase 24 U/L (0-32); Blood Urea Nitrogen 9 mg/dL (8-23); Calcium 9.4 mg/dL (8.5-10.5); Carbon Dioxide 25 mmol/L (22-29); Chloride 99 mmol/L (98-107); Globulin 3.1 g/dL (1.3-4.6); Glomerular Filtration Rate 125.9 mL/min (90-130); Glucose 87 mg/dL (65-115); Osmolality Calculated 278 mOsm/kg (285-295); Potassium 3.8 mmol/L (3.5-5.1); Sodium 135 mmol/L (136-145); Total Bilirubin 0.2 mg/dL (0.15-1.2); Total Protein 7.5 g/dL (6.6-8.7)
[2023-01-29] MEDS: fentaNYL 50 mcg/mL INJ 2mL IVP (21:52)
[2023-01-29] MEDS: acetaminophen 500 mg Tablet 1000 MG PO (21:52)
[2023-01-29] MEDS: ketorolac 30 mg/mL INJ 15 MG IVP (21:52)
[2023-01-29] MEDS: oxyCODONE 5 mg IR Tab/Cap 20 MG PO (22:38)
--- NOTE | 2023-01-29 22:39 | PC.NURSE ---
Pt given 4, 5mg oxycodone tabs with instructions for overnight use. Verbalized understanding.
--- NOTE | 2023-01-30 08:34 | DCPLANNER ---
Addendum entered by Corry Strong 01/31/23 09:20: Patient had a follow up appointment scheduled with ortho - patient did attend appointment Addendum entered by Corry Strong 01/30/23 11:53: entry level assistant manager received the following message from the ortho clinic regarding follow up appointment: attempt made to contact patient - left vm - per dr ring we would like to get her in today if possible Original Note: entry level assistant manager had message to schedule a follow up appointment for patient with ortho. entry level assistant manager sent patients information to the front office staff at ortho. Patients information will be printed and reviewed. Clinic will call patient with appointment information.
== END 2023-01-29 23:06 | disposition home or self-care (01) ==
PROVIDERS: Emergency Provider Emergency Medicine; PCP Family Medicine
DX: S52.512A Displaced fracture of left radial styloid process, initial encounter for closed fracture (principal); E78.5 Hyperlipidemia, unspecified; E03.9 Hypothyroidism, unspecified; Z87.891 Personal history of nicotine dependence; W19.XXXA Unspecified fall, initial encounter
CPT/HCPCS: 29125; 70450; 73070; 73090; 73110; 73130; 80053; 84443; 85025; 96374; 96375; 99285; J1885; J2270; J3010

== ENCOUNTER → 2023-01-31 08:37 | Outpatient (BNVA) | payer MEDICARE, MEDICAID, SELFPAY | PROVIDERS: PCP Family Medicine; Referring Provider Emergency Medicine; Visit Provider Orthopaedic Surgery | DX: S52.572A Other intraarticular fracture of lower end of left radius, initial encounter for closed fracture (principal); W19.XXXA Unspecified fall, initial encounter | CPT/HCPCS: 99203 ==

== ENCOUNTER 2023-01-31 11:21 | Outpatient (CLI) | payer MEDICARE, MEDICAID, SELFPAY | END 2023-01-31 11:22 | disposition home or self-care (01) | LOC: SPT 11:21 | PROVIDERS: PCP Family Medicine; Visit Provider Orthopaedic Surgery | DX: Z46.89 Encounter for fitting and adjustment of other specified devices (principal); S52.592D Other fractures of lower end of left radius, subsequent encounter for closed fracture with routine healing; X58.XXXD Exposure to other specified factors, subsequent encounter | CPT/HCPCS: 97760; L3908 ==

== ENCOUNTER 2023-02-01 12:00 | Day surgery (SDC) | payer MEDICARE, MEDICAID, SELFPAY ==
[2023-02-01] VITALS (14 sets, daily range): BP systolic 136–178; BP diastolic 68–97; PULSE 70–86; RESP 16–20; TEMP 36.1–36.8; O2SAT 93–100; BMI 33.6
--- NOTE | 2023-02-01 08:32 | W.PM.OPSUD ---
Surgery/Procedure H&P Update DATE OF PROCEDURE: February 01, 2023 DATE H&P PERFORMED: 01/31/23 H&P UPDATE INFORMATION: I have reviewed H&P completed within last 30 days PLANNED PROCEDURE: Operation Date: 02/01/23 15:25 Proposed Procedures p orif left distal radius/ 04337,S52.502A(Left) - Prosper Jeff MD
[2023-02-01] MEDS: sodium chloride 0.9% 1,000 ML 30 ML IV (12:46)
[2023-02-01] MEDS: HYDROmorphone 1 mg/mL INJ 1 mL 0.5 MG IVP ×3 (13:21→15:26)
--- NOTE | 2023-02-01 13:25 | ANES.PREANE2 ---
Pre-Anesthetic Assessment Height/Weight: Height 1.6 m Weight 86.183 kg Temp Pulse Resp BP Pulse Ox O2 Del Method 97.5 F L 78 16 143/73 96 02/01/23 12:36 02/01/23 12:36 02/01/23 12:36 02/01/23 12:36 02/01/23 12:36 02/01/23 12:36 Preop Diagnosis: Fracture left distal radius Operation Date: 02/01/23 15:25 Proposed Procedures p orif left distal radius/ 09439,S52.502A(Left) - Prosper Jeff MD Familial anesthetic complications: none Was Beta Mariam taken within 24 hours: Yes Was Clonidine taken within 24 hours: N/A Last intake: Intake Last Liquid Date 01/31/23 Last Liquid Time 21:00 Last Solid Date 01/31/23 Last Solid Time 18:00 Social No alcohol and No tobacco Exam alert, oriented x 3, clear to auscultation bilaterally and regular rate & rhythm Airway Submandibular: within normal limits Cervical ROM: within normal limits Mallampati: Class II Dentition: full CV/HEM Anemia and Hypertension GI Gastroesophageal Reflux Disease Metabolic Hyperlipidemia and Thyroid Disease [facility] [place] Lower Back Pain and Osteoarthritis/DJD Chronic pain/opioid Neuropsych Anxiety and Depression Anesthetic Plan ASA status: 3 Anesthesia: General Medications/Allergies Home Medications Medication Instructions Recorded Confirmed Last Taken Type multivitamin 1 tab PO DAILY 09/05/21 02/01/23 Unknown History calcium carbonate 600 mg-vitamin 1 cap PO BID 01/06/22 02/01/23 Unknown History D3 12.5 mcg (500 unit) capsule (Calcium 600 with Vitamin D3) ferrous gluconate 240 mg (27 mg 325 mg PO DAILY 01/31/22 02/01/23 Unknown History iron) tablet (Ferate) hydrocodone 10 mg-acetaminophen 1 tab PO TID PRN Pain 07/11/22 02/01/23 02/01/23 10:00 History 325 mg tablet divalproex 500 mg tablet,extended 1,000 mg PO .QHS #180 tabs 09/19/22 02/01/23 01/30/23 22:00 Rx release 24 hr (Depakote ER) gabapentin 300 mg capsule 400 mg PO DAILY 09/19/22 02/01/23 01/31/23 21:00 History propranolol 20 mg tablet 20 mg PO BID PRN anxiety #60 tabs 09/19/22 02/01/23 Unknown Rx quetiapine 300 mg tablet (Seroquel) 300 mg PO .bedtime #30 tabs 09/19/22 02/01/23 01/31/23 21:00 Rx fluticasone propionate 50 See Rx Instructions .Route 11/23/22 02/01/23 Unknown Rx mcg/actuation nasal .COMPLEX #48 grams spray,suspension fluoxetine 40 mg capsule 80 mg PO DAILY #60 caps 01/15/23 02/01/23 02/01/23 10:00 Rx cock up splint #1 ea 01/31/23 01/31/23 Unknown Rx atorvastatin 80 mg tablet 80 mg PO DAILY 02/01/23 02/01/23 Unknown History baclofen 10 mg tablet 10 mg PO PRN PRN Pain 02/01/23 02/01/23 Unknown History celecoxib 200 mg capsule 200 mg PO DAILY 02/01/23 02/01/23 02/01/23 10:00 History levothyroxine 100 mcg tablet 100 mcg PO DAILY 02/01/23 02/01/23 02/01/23 10:00 History pantoprazole 40 mg tablet,delayed 40 mg PO DAILY 02/01/23 02/01/23 01/31/23 History release ropinirole 3 mg tablet 3 mg PO DAILY 02/01/23 02/01/23 01/31/23 21:00 History Allergies Allergy/AdvReac Type Severity Reaction Status Date / Time lamotrigine [From Lamictal] Allergy Unknown Unknown Verified 01/31/23 08:45 lithium AdvReac Severe Mental Verified 01/31/23 08:45 Issues Current Medications Generic Name Dose Route Start Last Admin Trade Name Freq PRN Reason Stop Dose Admin Hydromorphone HCl 0.5 mg 02/01/23 12:05 02/01/23 13:21 Hydromorphone 1 Mg/Ml Inj 1 Ml IVP 0.5 mg ONCE PRN Administration For preop pain/anxiety Sodium Chloride 1,000 mls @ 30 mls/hr 02/01/23 12:15 02/01/23 12:46 Sodium Chloride 0.9% IV 02/02/23 12:14 30 mls/hr .Q24H WILLAM Administration PFSH Anesthesia Medical History Alcohol use disorder, moderate, in sustained remission Bereavement, uncomplicated Bipolar 1 disorder, mixed, moderate Borderline personality disorder Chronic neck pain Chronic post-traumatic stress disorder Dyslipidemia GERD (gastroesophageal reflux disease) Hypothyroid Psychiatric care RLS (restless legs syndrome) Surgical History H/O section Social History Smoking and tobacco status: former smoker Quit status (tobacco): has quit using tobacco Year quit tobacco: 2020 Second hand smoke exposure: No Smoking risk assessment/counseling performed?: No Alcohol intake: former Desire information about alcohol rehabilitation?: No Counseling given: No Desire information about substance/drug rehabilitation?: No Counseling given: No Data Anesthesia Cardiac Studies: No Data to Display
[2023-02-01] MEDS: ceFAZolin 2,000 MG in sodium chloride 0.9% (plus) 50 ML 100 MG IV (13:37)
[2023-02-01] MEDS: sodium chloride 0.9% 100 mL Bag XX (14:04)
--- NOTE | 2023-02-01 14:45 | PM.OP ---
Operative Report Date of procedure: February 01, 2023 Pre-op diagnosis: Preop Diagnosis Fracture left distal radius Post-op diagnosis: Four-part fracture left distal radius Implants: [place] [employer] intermediate short point Pathology: none sent Surgeon: Prosper Jeff Anesthesia: General Estimated blood loss (mL): 10 Complications: None Findings: The patient had a intra-articular fracture of the left distal radius with 3 intra-articular parts and depression of the volar lunate facet Condition: stable Disposition: PACU Brief History: The patient is a 62-year-old female who fell at home with resulting intra-articular fracture of the left distal radius with intra-articular displacement. She was taken to the operating room with goals of restoring the joint surface to congruency to ensure the best long-term pain-free from Procedure: Initial attempts were made at closed reduction however a satisfactory stable reduction could not be obtained. A decision was made to proceed with open reduction internal fixation.A 5 cm long incision was made along over the flexor carpi radialis tendon. Dissection was carried down through the tendon sheath. Dissection was carried down bluntly to the pronator quadratus. The pronator quadratus was elevated off of the distal radius leaving a cuff for later repair. A [place] [employer] intermediate short plate was applied and stabilized to the proximal shaft through the oblong screw hole. With control of the volar fragments a closed reduction was accomplished of the distal radius by applying longitudinal traction and dorsal pressure across the distal radial fragments. This provided reduction of the articular fragments eliminating incongruity. The plate was fixed distally with 7 locking screws controlling the radial styloid and large volar ulnar facet fragment. The screws were extended to grab the smaller dorsal lunate facet fragment. The plate was for proximally with 3 bicortical screws. Closed reduction wasIntraoperative imaging showed excellent position of the hardware. The wound was irrigated with saline. The pronator quadratus was reapproximated with 2-0 Vicryl. Subcutaneous tissues were closed with 2-0 Vicryl. The skin was closed with skin mika. Sterile dressings were applied. The patient was taken to outpatient surgery in stable condition.
--- NOTE | 2023-02-01 14:48 | XR_ITS ---
WS: [id number] XR wrist LT 1V [id number] REASON FOR EXAM: OR PICS FINDINGS: Plate and screw fixation of comminuted fracture of the distal left radial metaphysis with extension i nto the joint space. Fracture fragments and surgical appliances are in proper position and alignment. XR/XR wrist LT 1V [id number] IMPRESSION: Left wrist fracture with fixation as above.
--- NOTE | 2023-02-01 15:16 | SUR.OPER ---
450 mg ketamine wasted with Dr. Wynn. 50mg ketamine given IV to patient per anesthesia. Also documented on anesthesia chart. HD
[2023-02-01] MEDS: ketorolac 30 mg/mL INJ IM (15:23)
--- NOTE | 2023-02-01 15:24 | ANE.PACU2 ---
Inpatient post-anesthesia follow up: Airway intact: Yes Vital signs: Temperature 97.0 F Pulse Rate 86 Respiratory Rate 18 Blood Pressure 171/97 Pulse Oximetry 98 Oxygen Delivery Me thod Room Air Oxygen Flow Rate 6 Fraction of Inspir ed Oxygen Hydration adequate: Yes Nausea and vomiting: No Pain level: 5 Mental status: Baseline
[2023-02-01] MEDS: oxyCODONE 5 mg IR Tab/Cap PO (16:03)
== END 2023-02-01 16:37 | disposition home or self-care (01) ==
PROVIDERS: PCP Family Medicine; Visit Provider Orthopaedic Surgery
PROC: (CPT 25609; principal; 2023-02-01 15:05)
DX: S52.572A Other intraarticular fracture of lower end of left radius, initial encounter for closed fracture (principal); X58.XXXA Exposure to other specified factors, initial encounter; I10 Essential (primary) hypertension; K21.9 Gastro-esophageal reflux disease without esophagitis; E78.5 Hyperlipidemia, unspecified; G89.29 Other chronic pain; Z79.891 Long term (current) use of opiate analgesic; E03.9 Hypothyroidism, unspecified; Z87.891 Personal history of nicotine dependence
CPT/HCPCS: 25609; 73100; 76000; C1713; J0690; J1100; J1170; J1580; J1885; J2405; J2704; J3010; J3490; J3535; J7030

== ENCOUNTER → 2023-02-27 08:05 | Outpatient (BNVA) | payer MEDICARE, MEDICAID, OTHER, SELFPAY | PROVIDERS: PCP Family Medicine; Visit Provider Orthopaedic Surgery | DX: S52.502A Unspecified fracture of the lower end of left radius, initial encounter for closed fracture (principal); X58.XXXA Exposure to other specified factors, initial encounter | CPT/HCPCS: 73110; 99024 ==

== ENCOUNTER → 2023-03-27 08:26 | Outpatient (BNVA) | payer MEDICARE, MEDICAID, SELFPAY | PROVIDERS: Visit Provider Orthopaedic Surgery | DX: S52.502A Unspecified fracture of the lower end of left radius, initial encounter for closed fracture (principal); X58.XXXA Exposure to other specified factors, initial encounter | CPT/HCPCS: 73110; 99024 ==

== ENCOUNTER 2023-04-18 09:46 | Outpatient (RCR) | payer MEDICARE, MEDICAID, SELFPAY | END 2023-04-18 23:59 | disposition home or self-care (01) | LOC: SOT 09:46 | PROVIDERS: PCP Family Medicine; Visit Provider Orthopaedic Surgery | DX: Z47.89 Encounter for other orthopedic aftercare (principal) | CPT/HCPCS: 97110; 97166; 97530 ==

== ENCOUNTER → 2023-07-04 09:01 | Outpatient (BNVA) | payer MEDICARE, MEDICAID, SELFPAY | PROVIDERS: PCP Family Medicine; Visit Provider Nurse Practitioner Family | DX: M25.532 Pain in left wrist | CPT/HCPCS: 73110; 99213 ==

== ENCOUNTER → 2023-07-15 14:39 | Outpatient (BNVA) | payer MEDICARE, MEDICAID, SELFPAY | PROVIDERS: PCP Family Medicine; Visit Provider Nurse Practitioner | DX: R39.9 Unspecified symptoms and signs involving the genitourinary system (principal); R52 Pain, unspecified | CPT/HCPCS: 81000; 87086 ==

== ENCOUNTER → 2023-07-26 10:57 | Outpatient (BNVA) | payer MEDICARE, MEDICAID, SELFPAY | PROVIDERS: PCP Family Medicine; Visit Provider Family Medicine | DX: E78.5 Hyperlipidemia, unspecified (principal); E03.9 Hypothyroidism, unspecified; B35.1 Tinea unguium | CPT/HCPCS: 80053; 80061; 84443 ==

== ENCOUNTER → 2023-08-07 12:11 | Outpatient (BNVA) | payer MEDICARE, OTHER, SELFPAY | PROVIDERS: PCP Family Medicine; Visit Provider Psychiatry & Neurology Psychiatry | DX: F12.20 Cannabis dependence, uncomplicated (principal); F41.1 Generalized anxiety disorder; F60.3 Borderline personality disorder; F43.12 Post-traumatic stress disorder, chronic; F10.21 Alcohol dependence, in remission; F31.62 Bipolar disorder, current episode mixed, moderate; Z79.899 Other long term (current) drug therapy | CPT/HCPCS: 80164; 83036 ==

== ENCOUNTER → 2023-08-20 11:59 | Outpatient (BNVA) | payer MEDICARE, MEDICAID, SELFPAY | PROVIDERS: PCP Family Medicine; Visit Provider Family Medicine | DX: Z20.2 Contact with and (suspected) exposure to infections with a predominantly sexual mode of transmission (principal); Z01.419 Encounter for gynecological examination (general) (routine) without abnormal findings | CPT/HCPCS: 87491; 87591; 87624 ==

== ENCOUNTER 2024-01-08 14:29 | Outpatient (CLI) | payer MEDICARE, MEDICAID, SELFPAY ==
--- NOTE | 2024-01-08 14:30 | XR_ITS ---
WS: [id number] SCREENING DEXA SCAN Personally CLINICAL INFORMATION: postmenopausal COMPARISON: 2019 FINDINGS: The L1-L4 bone mineral density measures 1.250 g/cm2. This corresponds to a T score score of 0.6 and Z score of 1.2. Left femoral neck bone mineral density measures 0.951 g/cm2. This corresponds to a T score of -0.5 an d Z score of 0.1. Right femoral neck bone mineral density measures 0.941 g/cm2. This corresponds to a T score -0.5of an d Z score of 0.0. Mean femoral neck bone mineral density measures 0.946 g/cm2. This corresponds to a T score of -0.5 an d Z score of 0.0. IMPRESSION: Normal bone mineralization lumbar spine. Normal bone mineralization femoral necks. Patient's FRAX calculated 10 year probability for major osteoporotic fracture is 12.2% and osteoporot ic hip fracture is 0.8%.
== END 2024-01-08 14:30 | disposition home or self-care (01) ==
LOC: RAD 14:30
PROVIDERS: PCP Family Medicine; Visit Provider Family Medicine
DX: Z13.820 Encounter for screening for osteoporosis (principal); Z78.0 Asymptomatic menopausal state
CPT/HCPCS: 77080

== ENCOUNTER 2024-02-27 10:51 | Outpatient (CLI) | payer MEDICARE, MEDICAID, SELFPAY ==
--- NOTE | 2024-02-27 10:57 | MM_ITS ---
WS: [id number] BILATERAL SCREENING DIGITAL TOMOSYNTHESIS MAMMOGRAM WITH CAD HISTORY: screening mammogram COMPARISON: 10/08/2022, 09/20/2021 Bilateral CC and MLO views with tomosynthesis and synthetic mammography submitted. Computer aided det ection analyzed. Breast composition: There are scattered areas of fibroglandular density. No suspicious masses, microc alcifications or architectural distortion. Biopsy clip in the central RIGHT breast. Benign scattered calcifications throughout the RIGHT breast. IMPRESSION: MM/[place] [id number] BI-RADS: 2-Benign FOLLOW UP: 1 Year Follow-up
== END 2024-02-27 10:52 | disposition home or self-care (01) ==
LOC: RAD 10:52
PROVIDERS: PCP Family Medicine; Visit Provider Family Medicine
DX: Z12.31 Encounter for screening mammogram for malignant neoplasm of breast (principal)
CPT/HCPCS: 77063; 77067

== ENCOUNTER 2024-03-04 10:49 | Outpatient (RCR) | payer MEDICARE, MEDICAID, SELFPAY | END 2024-03-18 23:59 | disposition home or self-care (01) | LOC: SPT 10:49 | PROVIDERS: PCP Family Medicine; Visit Provider Anesthesiology | DX: M54.2 Cervicalgia (principal) | CPT/HCPCS: 97161 ==

== ENCOUNTER → 2024-05-05 10:08 | Outpatient (BNVA) | payer MEDICARE, SELFPAY | PROVIDERS: PCP Family Medicine; Visit Provider Family Medicine | DX: Z13.6 Encounter for screening for cardiovascular disorders (principal); E78.5 Hyperlipidemia, unspecified; E03.9 Hypothyroidism, unspecified | CPT/HCPCS: 80053; 80061; 84443; 85025 ==

== ENCOUNTER → 2024-05-09 07:50 | Outpatient (BNVA) | payer MEDICARE, SELFPAY | PROVIDERS: PCP Family Medicine; Visit Provider Nurse Practitioner Family | DX: B35.1 Tinea unguium (principal); L57.8 Other skin changes due to chronic exposure to nonionizing radiation; L57.0 Actinic keratosis; L82.0 Inflamed seborrheic keratosis; D22.5 Melanocytic nevi of trunk | CPT/HCPCS: 17000; 17110; 99204 ==

== ENCOUNTER → 2024-05-20 10:00 | Outpatient (BNVA) | payer MEDICARE, SELFPAY | PROVIDERS: PCP Family Medicine; Visit Provider Physician Assistant | DX: M25.562 Pain in left knee (principal); M17.12 Unilateral primary osteoarthritis, left knee | CPT/HCPCS: 20610; 73560; 73565; 99213; J3301 ==

== ENCOUNTER 2024-08-28 10:40 | Outpatient (RCR) | payer MEDICARE, MEDICAID, SELFPAY | END 2024-09-18 23:59 | disposition home or self-care (01) | LOC: SPT 10:40 | PROVIDERS: PCP Family Medicine; Visit Provider Nurse Practitioner Family | DX: G89.4 Chronic pain syndrome (principal) | CPT/HCPCS: 97113; 97161 ==

== ENCOUNTER 2024-09-19 06:00 | Outpatient (RCR) | payer MEDICARE, MEDICAID, SELFPAY | END 2024-10-13 23:59 | disposition home or self-care (01) | LOC: SPT 06:00 | PROVIDERS: PCP Family Medicine; Visit Provider Nurse Practitioner Family | DX: G89.4 Chronic pain syndrome (principal) | CPT/HCPCS: 97113; 97530 ==

== ENCOUNTER → 2024-09-24 09:15 | Outpatient (BNVA) | payer MEDICARE, MEDICAID, SELFPAY | PROVIDERS: PCP Family Medicine; Visit Provider Nurse Practitioner Family | DX: D48.5 Neoplasm of uncertain behavior of skin (principal); L57.0 Actinic keratosis; D22.5 Melanocytic nevi of trunk; L82.1 Other seborrheic keratosis; L81.4 Other melanin hyperpigmentation | CPT/HCPCS: 11102; 17000; 99213 ==

== ENCOUNTER → 2024-10-24 10:30 | Outpatient (BNVA) | payer MEDICARE, OTHER, SELFPAY | PROVIDERS: PCP Family Medicine; Visit Provider Physician Assistant | DX: M17.12 Unilateral primary osteoarthritis, left knee (principal) | CPT/HCPCS: 20610; 99213; J3301 ==

== ENCOUNTER 2024-12-11 13:00 | Outpatient (CLI) | payer MEDICARE, MEDICAID, SELFPAY ==
--- NOTE | 2024-12-11 13:10 | MR_ITS ---
WS: [id number] MRI LUMBAR SPINE NONCONTRAST TECHNIQUE: Sagittal T1, T2 and STIR imaging. Axial T1 and T2 imaging. CLINICAL INFORMATION: LBP COMPARISON: MRI 2017 FINDINGS: Mild lumbar curve. No acute compression. Slight anterolisthesis L3 on L4. This appears progressed com pared to previous. Mild disc bulging L2-L5. Incidental hemangioma L1. L1-L2: Mild annular bulging. Mild facet arthropathy. Mild LEFT and no significant RIGHT foraminal jose antonio rowing. Slight narrowing of the LEFT subarticular recess. L2-L3: Slight anterolisthesis. Mild disc bulge with mild central canal stenosis. This appears progres sed. RIGHT foraminal protrusion slightly impinges the exiting RIGHT L2 nerve root. Mild facet arthrop athy. L3-L4: Slight anterolisthesis. Mild disc bulging with moderate central canal stenosis appears slightl y progressed. Moderate facet arthropathy with ligamentum flavum hypertrophy. Impingement subarticular recess bilaterally. Moderate LEFT and mild RIGHT foraminal narrowing. L4-L5: Mild annular bulging with impingement on the RIGHT subarticular recess and traversing RIGHT L5 nerve root. Mild central canal stenosis. RIGHT eccentric disc bulging with mild RIGHT and no signifi cant LEFT foraminal narrowing. Moderate facet arthropathy. L5-S1: Mild disc bulging with slight impingement traversing RIGHT S1 nerve root in the subarticular r ecess. Moderate facet arthropathy. Mild RIGHT foraminal narrowing. Visualized pelvic bony structures: Normal. Paravertebral soft tissues: Normal. MR/MR lumbar spine wo con* [id number] IMPRESSION: 1. Mild lumbar curve. No acute compression. Slight anterolisthesis L2 on L3 an d L3 on L4 appears progressed. 2. Progressed central canal stenosis mild L2-3, moderate L3-4 and mild at L4-5 . 3. Progressed impingement on the RIGHT subarticular recess L4-5 with impingeme nt of traversing RIGHT L5 nerve root. Mild RIGHT L4-5 foraminal narrowing. 4. Disc bulge L5-S1 impinges the traversing RIGHT S1 nerve root in the subarti cular recess. This is progressed compared to previous. 5. Moderate to advanced arthropathy L4-L5 and L5-S1. 6. Progressed moderate LEFT L3-4 foraminal narrowing with foraminal protrusion .
== END 2024-12-11 13:04 | disposition home or self-care (01) ==
PROVIDERS: PCP Family Medicine; Visit Provider Nurse Practitioner Family
DX: M54.17 Radiculopathy, lumbosacral region (principal); M43.8X6 Other specified deforming dorsopathies, lumbar region; M48.061 Spinal stenosis, lumbar region without neurogenic claudication; M51.370 Other intervertebral disc degeneration, lumbosacral region with discogenic back pain only; M51.26 Other intervertebral disc displacement, lumbar region; M47.896 Other spondylosis, lumbar region; M47.897 Other spondylosis, lumbosacral region; D18.09 Hemangioma of other sites; R93.89 Abnormal findings on diagnostic imaging of other specified body structures
CPT/HCPCS: 72148

== ENCOUNTER → 2025-01-20 13:22 | Outpatient (BNVA) | payer MEDICARE, OTHER, SELFPAY | PROVIDERS: PCP Family Medicine; Visit Provider Family Medicine | DX: I10 Essential (primary) hypertension (principal); E03.9 Hypothyroidism, unspecified; E78.5 Hyperlipidemia, unspecified | CPT/HCPCS: 80053; 84443 ==

== ENCOUNTER → 2025-02-16 13:39 | Outpatient (BNVA) | payer MEDICARE, SELFPAY | PROVIDERS: PCP Family Medicine; Visit Provider Nurse Practitioner Family | DX: D22.5 Melanocytic nevi of trunk (principal); L57.8 Other skin changes due to chronic exposure to nonionizing radiation; L81.4 Other melanin hyperpigmentation; L91.8 Other hypertrophic disorders of the skin; L57.0 Actinic keratosis | CPT/HCPCS: 17000; 99213 ==

== ENCOUNTER → 2025-04-20 10:20 | Outpatient (BNVA) | payer OTHER, MEDICAID, SELFPAY | PROVIDERS: PCP Family Medicine; Visit Provider Family Medicine | DX: E78.5 Hyperlipidemia, unspecified (principal) | CPT/HCPCS: 80053; 80061 ==

== ENCOUNTER 2025-04-29 10:11 | Outpatient (CLI) | payer OTHER, MEDICAID, SELFPAY ==
--- NOTE | 2025-04-29 10:15 | US_ITS ---
WS: [id number] ULTRASOUND SOFT TISSUES LEFT ankle. HISTORY: left achilles pain / concern for tear COMPARISON: None available. TECHNIQUE: 2-D and color Doppler imaging is submitted. Ultrasound directed over the posterior LEFT ankle and along the site of the Achilles tendon. No fluid gap identified. Limited evaluation of the Achilles tendon. RIGHT Achilles evaluated for comparison. US/US soft tissue/extremity [id number] IMPRESSION: No fluid gap within the LEFT Achilles tendon. If there is continued concern for Achilles tear recommend MRI LEFT ankle.
== END 2025-04-29 10:12 | disposition home or self-care (01) ==
PROVIDERS: PCP Family Medicine; Visit Provider Family Medicine
DX: M76.62 Achilles tendinitis, left leg (principal)
CPT/HCPCS: 76882

== ENCOUNTER 2025-07-02 11:12 | Outpatient (CLI) | payer OTHER, MEDICAID, SELFPAY ==
--- NOTE | 2025-07-02 | MM_ITS ---
WS: [id number] BILATERAL SCREENING DIGITAL TOMOSYNTHESIS MAMMOGRAM WITH CAD HISTORY: ANNUAL SCREENING COMPARISON: 02/27/2024, 10/16/2022 Bilateral CC and MLO views with tomosynthesis and synthetic mammography submitted. Computer aided detection analyzed. Breast composition: There are scattered areas of fibroglandular density. No suspicious masses, microcalcifications or architectural distortion. Vascular calcifications. Biopsy clip central RIGHT breast. MM/MM scr BI tomosynthesis [id number] IMPRESSION: BI-RADS: 2 - Benign. FOLLOW UP: 1 Year Follow-up
== END 2025-07-02 11:13 | disposition home or self-care (01) ==
LOC: RAD 11:14
PROVIDERS: PCP Family Medicine; Visit Provider Family Medicine
DX: Z12.31 Encounter for screening mammogram for malignant neoplasm of breast (principal); R92.323 Mammographic fibroglandular density, bilateral breasts; R92.1 Mammographic calcification found on diagnostic imaging of breast; Z97.8 Presence of other specified devices
CPT/HCPCS: 77063; 77067

== ENCOUNTER → 2025-09-22 09:31 | Outpatient (BNVA) | payer MEDICARE, MEDICAID, SELFPAY | PROVIDERS: PCP Family Medicine; Visit Provider Physician Assistant | DX: M17.12 Unilateral primary osteoarthritis, left knee (principal); M25.561 Pain in right knee | CPT/HCPCS: 20610; 73560; 73565; 99213; J3301; J9999 ==